=== PATIENT | female | born 1950 | race Caucasian/White ===

== ENCOUNTER 2017-08-13 05:36 | Emergency (ER) | payer MEDICARE, OTHER ==
[2017-08-13] MEDS ORDERED: Bupivacaine 0.5% SDV PF* 10-30ML VIAL INJ ONE (05:41)
[2017-08-13] MEDS ORDERED: Ketorolac INJ* 30 MG/ML 1 ML VIAL IV PUSH ONE (05:41)
[2017-08-13] MEDS ORDERED: Bupivacaine 0.5% SDV PF* 10-30ML VIAL ONE (05:44)
[2017-08-13 06:40] LABS: ABS Basophils 0.1 10^3/ul (0-0.2); ABS Eosinophils 0.1 10^3/ul (0-0.6); ABS Lymphocytes 2.7 10^3/ul (1.0-4.8); ABS Monocytes 0.9 10^3/ul (0-0.8); ABS Neutrophils 6.7 10^3/ul (1.5-7.7); ABS Nucleated RBC 0 10^3/ul; Eosinophil % 0.9 % (0-6); Hematocrit 41 % (35-47); Hemoglobin 14.1 g/dl (12.0-16.0); Lymphocyte % 26.1 % (25-47); Mean Corpuscular HGB Conc 34 g/dl (31-36); Mean Corpuscular Hemoglobin 27 pg (27-31); Mean Corpuscular Volume 80 fL (80-97); Mean Platelet Volume 7.7 um3 (7.4-10.4); Nucleated Red Blood Cells % 0; Platelet Count 286 10^3/ul (150-450); Red Blood Count 5.15 10^6/ul (4.0-5.4); Red Cell Distribution Width 14 % (10.5-15); White Blood Count 10.4 10^3/ul (3.5-10.8)
[2017-08-13 06:42] LABS: Urine Appearance Clear; Urine Blood Negative (Negative); Urine Color Colorless; Urine Ketones Negative (Negative); Urine Protein Negative (Negative); Urine Specific Gravity 1.004 (1.010-1.030); Urine Urobilinogen Negative (Negative)
[2017-08-13 06:51] LABS: EGFR Non-African American 70.7 (>60)
--- NOTE | 2017-08-13 06:58 | ED ---
Victor Hugo Wiggins Rebecca, scribed for Carlos Bower MD on 08/13/17 at 0615 . Back Pain - HPI Summary HPI Summary: Pt is a 67 y/o F BIBA who presents to ED c/o back pain. Pain began suddenly last night in the right lower back and characterized as spasmodic. Pain is currently severe, ranked 8/10 and characterized as sharp/stabbing. Sx aggravated by movement, alleviated by laying on her side. Denies LE pain, numbness, weakness, abdominal pain, dysuria. No changes to bowel or bladder habits. Cites multiple allergies including penicillin, sulfa, flexeril, and morphine. - History of Current Complaint Stated Complaint: BACK PAIN Hx Obtained From: Patient Onset/Duration: Lasting Hours, Still Present Back Pain Location: Is Discrete @ - Lower right back Severity Currently: Severe Pain Intensity: 8 Pain Scale Used: 0-10 Numeric Character: Sharp Aggravating Symptom(s): Movement Alleviating Symptom(s): Other - Laying on her side Associated Signs And Symptoms: Positive: Negative - Allergies/Home Medications Allergies/Adverse Reactions: Allergies Allergy/AdvReac Type Severity Reaction Status Date / Time acetaminophen [From Supac] Allergy Rash Verified 08/13/17 06:39 aspirin [From Supac] Allergy Rash Verified 08/13/17 06:39 caffeine [From Supac] Allergy Rash Verified 08/13/17 06:39 calcium [From Supac] Allergy Rash Verified 08/13/17 06:39 cefaclor [From Ceclor] Allergy Rash Verified 08/13/17 06:39 cefuroxime [From Ceftin] Allergy Rash Verified 08/13/17 06:39 cyclobenzaprine Allergy Rash Verified 08/13/17 06:39 [From Flexeril] ibuprofen Allergy See Comment Verified 08/13/17 06:40 morphine Allergy Rash Verified 08/13/17 06:39 PMH/Surg Hx/FS Hx/Imm Hx Endocrine/Hematology History: Reports: Other Endocrine/Hematological Disorders - Hx Eczema Denies: Hx Diabetes Cardiovascular History: Denies: Hx Hypertension Respiratory History: Reports: Hx Asthma Musculoskeletal History: Reports: Hx Arthritis Infectious Disease History: Denies: Traveled Outside the [place] in Last 30 Days - Family History Known Family History: Negative: Diabetes - Social History Occupation: Retired Lives: With Family Alcohol Use: Occasionally Substance Use Type: Reports: None Smoking Status (MU): Never Smoked Tobacco Review of Systems Negative: Abdominal Pain Negative: dysuria Positive: Other - Right lower back pain; NEGATIVE: LE pain Negative: Weakness, Numbness All Other Systems Reviewed And Are Negative: Yes Physical Exam - Summary Physical Exam Summary: Appearance: Mild pain distress, pain with movement Skin: warm, dry, reflects adequate perfusion, scarring on the skin from chronic eczema Head/face: normal Eyes: EOMI, ONIEL ENT: normal Neck: supple, non-tender Respiratory: CTA, breath sounds present Cardiovascular: RRR, pulses symmetrical Abdomen: non-tender, no RUQ tenderness, soft Bowel Sounds: present Musculoskeletal: strength/ROM intact, pain in the right posterior musculature, just under the last rib Neuro: normal, sensory motor intact, A&Ox3 Triage Information Reviewed: Yes Vital Signs On Initial Exam: Initial Vitals Temp Pulse Resp BP Pulse Ox 98.1 F 88 16 189/74 99 08/13/17 05:50 08/13/17 05:50 08/13/17 05:50 08/13/17 05:50 08/13/17 05:50 Vital Signs Reviewed: Yes Procedures - Procedure Summary Procedure Summary: Trigger point injection: Indication is muscular pain. Description: patient is placed supine and spasmed lower thoracic and upper lumbar musculature on the right side, cleaned with alcohol, and injected with a total of 10 cc of 0.5% bupivacaine. Medication was massaged into the tissues. Tolerated it well with no complications. Pain relief was good. Bedside ultrasound - no abdominal aortic aneurysm, measured 1.58 cm adominal aorta, gallbladder and kidney looked normal. Diagnostics - Vital Signs Vital Signs Temp Pulse Resp BP Pulse Ox 08/13/17 05:50 98.1 F 88 16 189/74 99 - Laboratory Lab Results: Lab Results 08/13/17 08/13/17 08/13/17 Range/Units 06:20 06:20 06:20 WBC 10.4 (3.5-10.8) 10^3/ul RBC 5.15 (4.0-5.4) 10^6/ul Hgb 14.1 (12.0-16.0) g/dl Hct 41 (35-47) % MCV 80 (80-97) fL MCH 27 (27-31) pg MCHC 34 (31-36) g/dl RDW 14 (10.5-15) % Plt Count 286 (150-450) 10^3/ul MPV 7.7 (7.4-10.4) um3 Neut % (Auto) 63.9 (38-83) % Lymph % (Auto) 26.1 (25-47) % [place] % (Auto) 8.3 H (0-7) % Eos % (Auto) 0.9 (0-6) % Baso % (Auto) 0.8 (0-2) % Absolute Neuts (auto) 6.7 (1.5-7.7) 10^3/ul Absolute Lymphs (auto) 2.7 (1.0-4.8) 10^3/ul Absolute Monos (auto) 0.9 H (0-0.8) 10^3/ul Absolute Eos (auto) 0.1 (0-0.6) 10^3/ul Absolute Basos (auto) 0.1 (0-0.2) 10^3/ul Absolute Nucleated RBC 0 10^3/ul Nucleated RBC % 0 Sodium 141 (139-145) mmol/L Potassium 3.7 (3.5-5.0) mmol/L Chloride 107 (101-111) mmol/L Carbon Dioxide 27 (22-32) mmol/L Anion Gap 7 (2-11) mmol/L BUN 11 (6-24) mg/dL Creatinine 0.81 (0.51-0.95) mg/dL Est GFR ( Amer) 91.0 (>60) Est GFR (Non-Af Amer) 70.7 (>60) BUN/Creatinine Ratio 13.6 (8-20) Glucose 109 H (70-100) mg/dL Calcium 9.3 (8.6-10.3) mg/dL Total Bilirubin 0.60 (0.2-1.0) mg/dL AST 15 (13-39) U/L ALT 14 (7-52) U/L Alkaline Phosphatase 55 (34-104) U/L Total Protein 7.1 (6.4-8.9) g/dL Albumin 4.0 (3.2-5.2) g/dL Globulin 3.1 (2-4) g/dL Albumin/Globulin Ratio 1.3 (1-3) Lipase 13 (11.0-82.0) U/L Urine Color Colorless Urine Appearance Clear Urine pH 8.0 (5-9) Ur Specific [place] 1.004 L (1.010-1.030) Urine Protein Negative (Negative) Urine Ketones Negative (Negative) Urine Blood Negative (Negative) Urine Nitrate Negative (Negative) Urine Bilirubin Negative (Negative) Urine Urobilinogen Negative (Negative) Ur Leukocyte Esterase Negative (Negative) Urine Glucose Negative (Negative) Result Diagrams: 08/13/17 06:20 08/13/17 06:20 Lab Statement: Any lab studies that have been ordered have been reviewed, and results considered in the medical decision making process. Re-Evaluation - Re-Evaluation First Eval Re-Evaluation Time: 05:55 Comment: Trigger point injection Second Eval Re-Evaluation Time: 06:20 Change: Improved Comment: Pt's pain has improved. Third Eval Re-Evaluation Time: 06:42 Comment: Bedside ultrasound - no abdominal aortic aneurysm, measured 1.58 cm adominal aorta, gallbladder and kidney looked normal. Back Pain Course/Dx - Course Course Of Treatment: pt with R upper lumbar musc tenderness and difficulty moving. Recent steroids for bad asthma. Hx of mult bouts of steroids. No diff breathing or abd pain. Bedside US confirms no AAA, hydro R kidney or evidence of GB disease. Trigger point injection improved sx. Concern for poss compression fx, will CT. PA will assume care pending CT results. - Diagnoses Differential Diagnosis/HQI/PQRI: Positive: Arthritis, Fracture, Herniated Disc, Neoplasm, Osteoporosis, Renal Colic, Strain, Sprain Provider Diagnoses: Lumbar back pain Discharge - Sign-Out/Discharge Documenting (check all that apply): Sign-Out Patient Signing out patient TO: Jen Brooks - Discharge Plan Condition: Stable Referrals: No Primary Care Phys,NOPCP [Primary Care Provider] - - Billing Disposition and Condition Condition: STABLE The documentation as recorded by the Victor Hugo nair Rebecca accurately reflects the service I personally performed and the decisions made by me, Carlos Bower MD.
--- NOTE | 2017-08-13 08:04 | RAD ---
INDICATION: The patient woke up with right back pain COMPARISON: There are no prior studies available for comparison. TECHNIQUE: Contiguous axial sections were obtained beginning lower thoracic vertebra and continuing through the sacrum. Images were reconstructed in the sagittal and coronal planes. FINDINGS: The vertebra are in normal alignment. No fracture is seen. There is no hyperdense material in the thecal sac to indicate acute hemorrhage. Degenerative changes of the lumbar spine include loss of intervertebral disc height, anterior marginal osteophyte formation at the lower thoracic spine and vacuum disc phenomenon at L3/L4 and L4/L5. At L3/L4 there is broad-based disc protrusion combining with facet arthropathy to cause mild central canal stenosis and mild bilateral neural foraminal stenosis. At L4/L5 there is broad-based disc protrusion extending into the right neural foramen and combining with facet arthropathy to cause moderate central canal stenosis, moderate right and mild left neural foraminal stenosis. The visualized soft tissues do not exhibit any acute abnormalities. IMPRESSION: Multilevel degenerative changes as described above without acute compression fracture or deformity. Degenerative changes are most severe at L3/L4 and L4/L5.
[2017-08-13] MEDS ORDERED: Diazepam TAB(*) 5 MG PO ONE (08:29)
--- NOTE | 2017-08-13 08:54 | ED ---
Progress - Progress Note Progress Note: Patient signed out by Dr. Bower in stable condition with right sided thoracic or lumbar pain suspected to be musculoskeletal in nature. CT of her thoracolumbar spine reveals "vertebrae are normal alignment. No fractures seen. There is no hyperdense material in the thecal sac to indicate acute hemorrhage. Degenerative changes of the lumbar spine include loss of intervertebral disc height, anterior marginal osteophyte formation at the lower thoracic spine and vacuum disc phenomenon at L3-L4 and L4-L5. At L3-L4 there is broad these disc protrusion combining with facet arthropathy to cause mild central canal stenosis and mild bilateral neural foraminal stenosis. At L4-L5 there is broad-based disc protrusion extending into the right neural foramen and combining with facet arthropathy to cause moderate central canal stenosis moderate right and mild left neural foraminal stenosis. Visualize soft tissues not exhibit any acute abnormality." Discussed results with patient and family - pt reports she's had pain relief from 9 out of 10 to now 3 out of 10 status post bupivacaine trigger point injection and Toradol. She does have a 2+ hour drive home to [facility] so we will administer a muscle relaxer here in the ED for more comfortable trip. Since her pharmacy [place] of state, I was unable to E prescribe further medications. These were handwritten instead: Diazepam 5 mg 1 tab by mouth every 8 hours when necessary pain #15 No refills Ibuprofen 600 mg 1 tab by mouth every 6 hours with food when necessary pain #20 No refills Patient advised to follow-up with PCP this week. Reviewed that steroids are usually quite effective for this diagnosis however with her past use of steroids , she prefers to abstain at this time. She will discuss tx options in further detail with PCP. Danger signs and symptoms reviewed for when to return to the emergency department. She and family agree with plan and were very pleased with her care here today. Dispo: home Condition: improved Re-Evaluation - Re-Evaluation First Eval Re-Evaluation Time: 05:55 Comment: Trigger point injection Second Eval Re-Evaluation Time: 06:20 Change: Improved Comment: Pt's pain has improved. Third Eval Re-Evaluation Time: 06:42 Comment: Bedside ultrasound - no abdominal aortic aneurysm, measured 1.58 cm adominal aorta, gallbladder and kidney looked normal. Course/Dx - Course Course Of Treatment: pt with R upper lumbar musc tenderness and difficulty moving. Recent steroids for bad asthma. Hx of mult bouts of steroids. No diff breathing or abd pain. Bedside US confirms no AAA, hydro R kidney or evidence of GB disease. Trigger point injection improved sx. Concern for poss compression fx, will CT. PA will assume care pending CT results. - Diagnoses Provider Diagnoses: Lumbar back pain, Degenerative disc disease, lumbar, Lumbar canal stenosis, Protrusion of lumbar intervertebral disc Discharge - Sign-Out/Discharge Documenting (check all that apply): Discharge - Discharge Plan Condition: Stable Disposition: HOME Patient Education Materials: Lumbar Disc Herniation (ED), Degenerative Disc Disease (ED), Lumbar Spinal Stenosis (ED) Referrals: No Primary Care Phys,NOPCP [Primary Care Provider] - Additional Instructions: You appear to degenerative changes of the lumbar spine with 2 areas revealing broad based disc protrusions and central canal narrowing. This is most likely the cause of your pain today. You have had relief with a local trigger point injection as well as toradol, an anti-inflammatory medication. Furthermore, you were provided with diazepam (aka "valium" for its muscle relaxing effects). A short course has been provided as well as an anti-inflammatory. Use these as directed and follow-up with your PCP this week. *If you develop numbness, tingling, weakness, fever or shortness of breath, return to the ED - Billing Disposition and Condition Condition: STABLE Disposition: HOME
[2017-08-13 08:57] VITALS: BP 138/53
== END 2017-08-13 08:51 | disposition home or self-care (01) ==
LOC: ED 05:36
DX: M54.5 Low back pain (principal); J45.909 Unspecified asthma, uncomplicated; Z88.0 Allergy status to penicillin; Z88.2 Allergy status to sulfonamides; Z88.5 Allergy status to narcotic agent
CPT/HCPCS: 36415; 72131; 80053; 81003; 83690; 85025; 96372; 96374; 99283; A9270-GY; J1885